=== PATIENT | female | born 1955 | race African-American/Black ===

== ENCOUNTER 2020-04-10 23:53 | Emergency (ER) | payer MEDICAID, OTHER ==
[~2020-04-10] VITALS: Ht 172.7 cm; Wt 84.0 kg
[2020-04-11] MEDS ORDERED: KETOROLAC 60MG/2ML VIAL IM ONE (01:30)
[2020-04-11] MEDS ORDERED: MORPHINE SULFATE 4 MG/ML CPJ (NOT FOR IM USE) IV ONE (02:30)
[2020-04-11] MEDS ORDERED: MORPHINE SULFATE 10 MG/ML CPJ IV NR (03:00)
[2020-04-11] MEDS ORDERED: MORPHINE SULFATE 10 MG/ML CPJ IM NR (03:00)
[2020-04-11 04:00] VITALS: BP 149/79
== END 2020-04-11 04:49 | disposition home or self-care (01) ==
LOC: ER 23:53
DX: S52.591A Other fractures of lower end of right radius, initial encounter for closed fracture (principal); S52.691A Other fracture of lower end of right ulna, initial encounter for closed fracture; W01.0XXA Fall on same level from slipping, tripping and stumbling without subsequent striking against object, initial encounter; Y93.01 Activity, walking, marching and hiking; Y92.018 Other place in single-family (private) house as the place of occurrence of the external cause; I10 Essential (primary) hypertension; E11.9 Type 2 diabetes mellitus without complications; J45.909 Unspecified asthma, uncomplicated
CPT/HCPCS: 29125; 70450; 73110; 93005; 96372; 99285; J1885; J2270

== ENCOUNTER 2024-08-29 08:52 | Emergency (ER) | payer MEDICAID, OTHER ==
[~2024-08-29] VITALS: Ht 175.3 cm; Wt 85.0 kg
[2024-08-29 08:53] VITALS: BP 119/90; PULSE 80; RESP 18; TEMP 36.7; O2SAT 100
[2024-08-29 10:22] VITALS: TEMP 98
[2024-08-29] MEDS: ACETAMINOPHEN 500MG TABLET PO ONE (10:22)
== END 2024-08-29 13:51 | disposition home or self-care (01) ==
LOC: ER 09:07
DX: Z00.00 Encounter for general adult medical examination without abnormal findings (principal); E11.9 Type 2 diabetes mellitus without complications; H54.8 Legal blindness, as defined in USA; I10 Essential (primary) hypertension; J45.909 Unspecified asthma, uncomplicated; M17.0 Bilateral primary osteoarthritis of knee; Z88.0 Allergy status to penicillin; Z88.5 Allergy status to narcotic agent
CPT/HCPCS: 99283